=== PATIENT | male | born 1955 | race Caucasian/White ===

== ENCOUNTER 2024-04-26 10:44 | Emergency (ER) | payer MEDICARE, SELFPAY ==
[2024-04-26 11:10] VITALS: BP 181/105
[2024-04-26 11:21] VITALS: BMI 27.4
--- NOTE | 2024-04-26 12:47 | ED.GENMED ---
History of Present Illness
General
Chief Complaint: Anxiety
Time Seen by Provider: 04/26/24 12:29
History of Present Illness
History of Present Illness:
Patient presents to the emergency department with anxiety, sleep deprivation. Notes that he had a panic attack a few months ago and since then he has gradually had worsening anxiety. Reports that he has not slept in 5 days. Reports that he has
been painting his house at night and pacing around his trailer. Endorses passive suicidal thoughts but states that if he wanted to kill himself he would not be here right now. Denies any alcohol use. Endorses marijuana use. Denies any other
illicit drug use. Denies medical history
Past History
Past History
ED Past Medical History: None
ED Past Surgical History: None
Social History
Tobacco: Non-smoker
Alcohol: Occasional
Personal: Other (Seperated)
Living: alone
Employment: Employed
Family History
Family History: Other (Grandfather with Parkinson's)
Phy Exam
Physical Exam
Physical Exam:
General: Psychomotor agitation, ambulating around the room, cooperative
Head: NCAT
Neck, Normal in appearance, no swelling
Respiratory: No Respiratory distress
Abdomen: No distension
Ext: no edema
Neuro: NEIL, AOx4
Psych: Anxious appearing, denies suicidal ideation
Skin: Normal color
Course
Orders/Labs/Results
Orders:
Orders
04/26/24 10:47
Electrocardiogram (*1) Urgent
Reason for Study: Other
Other Reason for Exam: anxiety
EKG- Treatment ONCE
04/26/24 11:07
1:1 Observation - Suicide/ Violent Behavior As Directed
04/26/24 12:43
Crisis Consult Routine
Reason for Consult: Amelia, passive suicidal ideation
04/26/24 12:47
Alcohol Urgent
Complete Blood Count/With Diff Urgent
Comprehensive Metabolic Panel Urgent
04/26/24 12:49
Fentanyl, Urine Urgent
Urine Drug Abuse Screen Urgent
Date Specimen was Collected: 04/26/24
Time Specimen was Collected: 12:47
04/26/24 13:46
Lorazepam [Ativan] 1 mg .ROUTE .STK-MED ONE
04/26/24 13:47
Lorazepam [Ativan] 1 mg PO NOW STA
Abnormal Lab Results
04/26/24 04/26/24
12:47 12:49
MPV 10.7 H fL
(7.4-10.4)
Abs Immat Gran (auto) 0.1 H 10^3/uL
(0-0.05)
Absolute Neuts (auto) 7.5 H 10^3/uL
(1.4-6.5)
Absolute Monos (auto) 0.7 H 10^3/uL
(0.1-0.6)
Lymphocytes % 15.8 L %
(20.5-51.1)
Glucose 116 H mg/dl
(70-99)
Ur Oxycodone Screen Positive H
(Negative)
U Marijuana (THC) Screen Positive H
(Negative)
04/26/24 12:47
04/26/24 12:47
Vital Signs
Initial and Last Documented VS:
Initial Vital Signs
Temp Pulse Resp BP Pulse Ox
97.3 F 71 22 181/105 97
04/26/24 11:10 04/26/24 11:10 04/26/24 11:10 04/26/24 11:10 04/26/24 11:10
Last Documented Vital Signs
Temp Pulse Resp BP Pulse Ox
97.3 F 71 22 181/105 97
04/26/24 11:10 04/26/24 11:10 04/26/24 11:10 04/26/24 11:10 04/26/24 11:10
*Critical Care Note
Total Time (30-74mins, 75-104mins- exclusive of procedures): Not Applicable
ED Attending Note
ED Attending Note
ED Attending Note:
Patient with likely manic episode and anxiety. Denies any psychiatric history. Will check basic labs and consult crisis
Patient seen by crisis. They felt that he was not an acute threat to himself. He has follow-up with a psychiatrist tomorrow. Return precautions given.
-
Portions of this chart may have been created with voice recognition software.� Occasional wrong word or��sound alike� substitutions may have occurred due to the inherent limitations of voice recognition software.
Discharge Plan
Departure
Patient Disposition: Home (Routine Discharge)
Date of Disposition: 04/26/24
Time of Disposition: 14:56
Patient with high blood pressure during this ER visit?: No
Discharge Problem:
Anxiety
Prescriptions:
No Action
amoxicillin-pot clavulanate 1 TABLET tablet
1 tab PO Q12 Qty: 14 0RF
Referrals:
NONE,* [Family Provider] -
Activity Restrictions/Additional Instructions:
Return to ER with worsening symptoms.
Interventions
Interventions:
*Risk Screen - Suicide Last Done: 04/26/24 11:04
*General Assessment Last Done: 04/26/24 11:21
*Neglect/Abuse Screening Last Done: 04/26/24 11:21
ED- Fall Risk Assessment Last Done: 04/26/24 11:24
*ED COVID-19 Vaccine History Last Done: 04/26/24 11:21
*Nursing Disposition Last Done: 04/26/24 15:19
ED-Psychological Assessment Last Done: 04/26/24 11:21
Discharge Date and Time
Discharge Date/Time: 04/26/24 15:19
Print Language: URDU
[2024-04-26 13:02] LABS: % Basophils 0.8 % (0-2); % Eosinophils 1.3 % (0-6); % Immature Granulocytes 0.5 % (0-0.5); % Lymphocytes 15.8 % (20.5-51.1); % Monocytes 6.9 % (1.7-9.3); % Neutrophils 74.7 % (42.2-75.2); Absolute Basophils 0.1 10^3/uL (0-0.2); Absolute Eosinophils 0.1 10^3/uL (0-0.7); Absolute Immature Granulocytes 0.1 10^3/uL (0-0.05); Absolute Lymphocytes 1.6 10^3/uL (1.2-3.4); Absolute Monocytes 0.7 10^3/uL (0.1-0.6); Absolute Neutrophils 7.5 10^3/uL (1.4-6.5); Hematocrit 45.3 % (39.0-52.0); Hemoglobin 15.6 g/dL (13.0-18.0); Mean Corp Hgb Conc. 34.4 g/dL (33.0-37.0); Mean Corpuscular Hgb 28.2 pg (27.0-31.0); Mean Corpuscular Volume 81.9 fL (80.0-94.0); Mean Platelet Volume 10.7 fL (7.4-10.4); Nucleated Red Blood Cells % 0 % (-); Platelet Count 236 10^3/uL (130-400); Red Blood Cell Count 5.53 10^6/uL (4.70-6.10); Red Cell Dist. Width 13.6 % (11.5-14.5)
[2024-04-26 13:17] LABS: ALT (SGPT) 38 U/L (0-50); AST (SGOT) 30 U/L (17-59); Albumin 4.6 g/dl (3.5-5.0); Alkaline Phosphatase 120 U/L (38-126); Blood Urea Nitrogen 18 mg/dl (9-20); Calcium 9.6 mg/dl (8.4-10.2); Carbon Dioxide 26 mmol/L (22-30); Chloride 101 mmol/L (98-107); Estimated Creatinine Clearance 96 ml/min; Glucose 116 mg/dl (70-99); Potassium 4.3 mmol/L (3.5-5.1); Sodium 138 mmol/L (135-145); Total Bilirubin 0.8 mg/dl (0.2-1.3); Total Protein 6.9 g/dl (6.3-8.2); eGFR > 60.00
[2024-04-26 13:17] LABS: Amphetamines Negative (Negative); Barbiturates Negative (Negative); Benzodiazepines Negative (Negative); Buprenorphine Negative (Negative); Cocaine Negative (Negative); Marijuana Positive (Negative); Methadone Negative (Negative); Methamphetamines Negative (Negative); Opiates Negative (Negative); Phencyclidine Negative (Negative); Tricyclic Antidepressants Negative (Negative)
[2024-04-26 13:20] LABS: Alcohol None Detected
[2024-04-26 13:35] LABS: Fentanyl, Urine Negative (Negative)
[2024-04-26] MEDS: ATIVAN 1 MG PO (13:48)
== END 2024-04-26 15:19 | disposition home or self-care (01) ==
LOC: EMR 10:44
PROVIDERS: EMERGENCY PHYSICIAN Emergency Medicine
DX: F41.9 Anxiety disorder, unspecified (principal); R45.851 Suicidal ideations; Z72.820 Sleep deprivation
CPT/HCPCS: 99283; 80053; 80306; 80307; 82077; 85025; 93005

== ENCOUNTER 2024-05-08 10:27 | Emergency (ER) | payer MEDICARE, SELFPAY ==
[2024-05-08 10:36] VITALS: BP 170/108
--- NOTE | 2024-05-08 10:44 | ED.GENMED ---
History of Present Illness
General
Chief Complaint: Crisis Evaluation
Time Seen by Provider: 05/08/24 10:44
History of Present Illness
History of Present Illness:
TIME OF INITIAL ENCOUNTER: 10:45 AM
HPI:
Patient has been having thoughts of suicide since this past Tuesday (5 days ago). His a year ago but does not think that is a contributing factor as he indicates that they were not very close. He also anxious. He was on BuSpar about
20 years ago for 1 year which helped at the time. He intermittently has been using opiates and Kratom. He says he saw Dr./Psychologist in [place] after he was seen here for crisis and feels that the visit in [place] was useless.
EXAM:
GENERAL: Well appearing in no distress
HEENT: Moist oral mucosa
CARDIOVASCULAR: No murmurs, normal heart rate, regular rhythm, No chest wall tenderness
PULMONARY: No respiratory distress, breath sounds are clear and equal
ABDOMEN: Soft with no peritoneal signs, no tenderness
NEUROLOGIC: Excellent strength all extremities, no coordination deficits
PSYCHIATRIC: Appropriate mental status, normal insight and judgement, however the patient appears to have some pressured speech and appears somewhat anxious at time
EXTREMITIES: Nontender, no edema, moves all extremities equally
SKIN: No rash, no lesions
NUMBER AND COMPLEXITY OF PROBLEMS ADDRESSED AT THE ENCOUNTER
� Chronic conditions affecting care: High blood pressure, anxiety, substance abuse
� Acute Exacerbation and/or Progression of Chronic Illness: This is an acute but recurring problem
� Differential Diagnosis includes: Suicidal ideation, depression, anxiety
AMOUNT AND/OR COMPLEXITY OF DATA TO BE REVIEWED AND ANALYZED
� I performed an independent evaluation of and my interpretation is:
EKG:
CT:
X-rays:
Laboratory Studies: I reviewed basic blood work from the recent past
Other:
� Review of other/old records: The patient had blood work done nearly 2 weeks ago and had a normal CBC and chemistries
� Clinical information was obtained by an independent historian: None needed
� Prescriptions/Medications Considered but not given: Considered BuSpar
� Further testing considered but not performed:
RISK OF COMPLICATIONS AND/OR MORBIDITY OR MORTALITY OF PATIENT MANAGEMENT
� Social determinants of health affecting care: Says he lives in a trailer home, has no children
� Discussion with other providers: Informed crisis of the consult at 10:55 AM; he was here with a crisis evaluation 11 days ago
� Escalation of care including admission/observation vs risk of discharge considered: This is the patient's second visit to the emergency department and has not been doing well as an outpatient.
ANY OTHER UPDATES:
12:05 PM: The patient is being bed search by crisis
12:20 PM: Anxiety is rather significant�will give a dose of Ativan
1:10 PM: I spoke to crisis who indicates the [facility] but cannot arrive there until after 6 PM today.
Past History
Past History
ED Past Medical History: None
ED Past Surgical History: None
Social History
Tobacco: Non-smoker
Alcohol: Occasional
Personal: Other (Seperated)
Living: alone
Employment: Employed
Family History
Family History: Other (Grandfather with Parkinson's)
Phy Exam
Physical Exam
Physical Exam:
See HPI
Course
Orders/Labs/Results
Orders:
Orders
05/08/24 10:33
1:1 Observation - Suicide/ Violent Behavior As Directed
05/08/24 10:34
Crisis Consult Urgent
Reason for Consult: si/anxiety
05/08/24 12:08
Lorazepam [Ativan] 1 mg PO NOW STA
05/08/24 16:33
Complete Blood Count/With Diff Urgent
Comprehensive Metabolic Panel Urgent
Urinalysis Reflex To Culture Urgent
Date Specimen was Collected: 05/08/24
Time Specimen was Collected: 16:32
05/08/24 18:00
Nicotine [Nicoderm Transdermal] 21 mg TRANSDERM DAILY
Abnormal Lab Results
05/08/24
16:33
MPV 11.1 H fL
(7.4-10.4)
Absolute Monos (auto) 1.0 H 10^3/uL
(0.1-0.6)
Monocytes % 10.8 H %
(1.7-9.3)
BUN 21 H mg/dl
(9-20)
05/08/24 16:33
05/08/24 16:33
Vital Signs
Initial and Last Documented VS:
Initial Vital Signs
Temp Pulse Resp BP Pulse Ox
97.8 F 75 18 170/108 96
05/08/24 10:36 05/08/24 10:36 05/08/24 10:36 05/08/24 10:36 05/08/24 10:36
Last Documented Vital Signs
Temp Pulse Resp BP Pulse Ox
97.8 F 77 18 162/88 97
05/08/24 10:36 05/08/24 18:00 05/08/24 18:00 05/08/24 18:00 05/08/24 18:00
*Critical Care Note
Total Time (30-74mins, 75-104mins- exclusive of procedures): Not Applicable
ED Attending Note
-
Portions of this chart may have been created with voice recognition software.� Occasional wrong word or��sound alike� substitutions may have occurred due to the inherent limitations of voice recognition software.
Discharge Plan
Departure
Patient Disposition: Psych Facility
Date of Disposition: 05/08/24
Time of Disposition: 12:04
Patient with high blood pressure during this ER visit?: Yes
Discharge Problem:
Suicidal ideation
Prescriptions:
No Action
amoxicillin-pot clavulanate 1 TABLET tablet
1 tab PO Q12 Qty: 14 0RF
Referrals:
UNKNOWN,NO INTERVIEW [Family Provider] -
Interventions
Interventions:
*Risk Screen - Suicide Last Done: 05/08/24 10:31
*Neglect/Abuse Screening Last Done: 05/08/24 11:30
ED- Fall Risk Assessment Last Done: 05/08/24 18:45
*ED COVID-19 Vaccine History Last Done: 05/08/24 10:36
*Nursing Disposition Last Done: 05/08/24 18:45
ED-Psychological Assessment Last Done: 05/08/24 12:27
Discharge Date and Time
Discharge Date/Time: 05/08/24 19:50
Print Language: TURKMEN
[2024-05-08] MEDS: ATIVAN 1 MG PO (12:11)
[2024-05-08 13:00] VITALS: BP 149/80
[2024-05-08 16:48] LABS: % Basophils 0.8 % (0-2); % Eosinophils 2.4 % (0-6); % Immature Granulocytes 0.3 % (0-0.5); % Lymphocytes 27.8 % (20.5-51.1); % Monocytes 10.8 % (1.7-9.3); % Neutrophils 57.9 % (42.2-75.2); Absolute Basophils 0.1 10^3/uL (0-0.2); Absolute Eosinophils 0.2 10^3/uL (0-0.7); Absolute Lymphocytes 2.6 10^3/uL (1.2-3.4); Absolute Neutrophils 5.4 10^3/uL (1.4-6.5); Hematocrit 46.7 % (39.0-52.0); Hemoglobin 16.1 g/dL (13.0-18.0); Mean Corp Hgb Conc. 34.5 g/dL (33.0-37.0); Mean Corpuscular Hgb 28.4 pg (27.0-31.0); Mean Corpuscular Volume 82.4 fL (80.0-94.0); Mean Platelet Volume 11.1 fL (7.4-10.4); Nucleated Red Blood Cells % 0 % (-); Platelet Count 234 10^3/uL (130-400); Red Blood Cell Count 5.67 10^6/uL (4.70-6.10); Red Cell Dist. Width 13.3 % (11.5-14.5); White Blood Cell Count 9.3 10^3/uL (4.8-10.8)
[2024-05-08 16:49] LABS: Urine Albumin Negative (Neg - Trace); Urine Bilirubin Negative (Negative); Urine Character Clear (Clear); Urine Color Yellow; Urine Glucose Negative (Negative); Urine Ketone Negative (Negative); Urine Leukocyte Negative (Negative); Urine Nitrite Negative (Negative); Urine Occult Blood Negative (Negative); Urine Urobilinogen Negative (Neg - 1+)
[2024-05-08 17:00] LABS: ALT (SGPT) 19 U/L (0-50); AST (SGOT) 23 U/L (17-59); Albumin 4.1 g/dl (3.5-5.0); Alkaline Phosphatase 81 U/L (38-126); Blood Urea Nitrogen 21 mg/dl (9-20); Calcium 9.4 mg/dl (8.4-10.2); Carbon Dioxide 29 mmol/L (22-30); Chloride 102 mmol/L (98-107); Glucose 79 mg/dl (70-99); Potassium 3.9 mmol/L (3.5-5.1); Sodium 141 mmol/L (135-145); Total Bilirubin 0.6 mg/dl (0.2-1.3); Total Protein 6.6 g/dl (6.3-8.2); eGFR > 60.00
[2024-05-08] MEDS: NICODERM TRANSDERMAL 21 MG TRANSDERM (17:28)
[2024-05-08 18:00] VITALS: BP 162/88
== END 2024-05-08 19:50 ==
LOC: EMR 10:27
PROVIDERS: Emergency Medicine; EMERGENCY PHYSICIAN Emergency Medicine
DX: R45.851 Suicidal ideations (principal)
CPT/HCPCS: 99283; 80053; 81003; 85025

== ENCOUNTER 2024-06-04 09:21 | Emergency (ER) | payer MEDICARE, SELFPAY ==
[2024-06-04 09:28] VITALS: BP 179/118
[2024-06-04 10:20] VITALS: BP 204/104
[2024-06-04 10:22] VITALS: BP 204/104
--- NOTE | 2024-06-04 10:22 | ED.GENMED ---
History of Present Illness
<Whitney Das MD, Resident - Last Filed: 06/04/24 13:03>
General
Chief Complaint: Abdominal Symptoms
Source: patient
Time Seen by Provider: 06/04/24 10:19
History of Present Illness
History of Present Illness:
This is a 68-year-old male patient with PMH of anxiety presents to the ED with a myriad of concerns. He states that he has been experiencing a left-sided throbbing headache, a burning sensation in his chest, constipation and blurry vision since the
past 5 days. He denies any fever, chills or abdominal pain. He denies any cough or sore throat. He states that he is a very anxious person and has been worrying about his symptoms.
Past History
<Whitney Das MD, Resident - Last Filed: 06/04/24 13:03>
Past History
ED Past Medical History: Psychiatric (Anxiety)
ED Past Surgical History: None
Social History
Tobacco: Non-smoker
Alcohol: Occasional
Personal: Other (Seperated)
Living: alone
Employment: Employed
Family History
Family History: Other (Grandfather with Parkinson's)
Review of Systems
<Whitney Das MD, Resident - Last Filed: 06/04/24 13:03>
Review of Systems
Constitutional: Denies fever or chills
Respiratory: Denies cough or trouble breathing
Cardiac: Reports chest pain
ABD/GI: Reports constipated; Denies abdominal pain
Neurological: Reports headache (Left-sided)
Psychiatric: Reports anxiety
Phy Exam
<Whitney Das MD, Resident - Last Filed: 06/04/24 13:03>
General Physical Exam
General Presentation: well appearing and no apparent distress
Cardiovascular Exam
Cardiovascular Exam: regular rate/rhythm and no murmur
Heart Sounds: normal
Pulmonary Exam
Pulmonary Exam: lungs clear, no respiratory distress and no crackles
Gastrointestinal Exam
Gastrointestinal Exam: non tender, soft and non distended
Neurological Exam
Neurological Exam: oriented x3
Musculoskeletal Exam
Musculoskeletal Exam: no edema
Skin Exam
Skin Exam: warm/dry
Psychiatric Exam
Psychiatric Exam: normal mood/affect
Course
<Whitney Das MD, Resident - Last Filed: 06/04/24 13:03>
Vital Signs
Initial and Last Documented VS:
Initial Vital Signs
Temp Pulse Resp Pulse Ox
36.7 C 78 16 98
06/04/24 09:26 06/04/24 09:26 06/04/24 09:26 06/04/24 09:26
Last Documented Vital Signs
Temp Pulse Resp BP Pulse Ox
36.7 C 88 16 178/108 97
06/04/24 09:26 06/04/24 10:22 06/04/24 10:22 06/04/24 12:00 06/04/24 12:45
<Scott Castro DO - Last Filed: 06/04/24 13:07>
Vital Signs
Initial and Last Documented VS:
Initial Vital Signs
Temp Pulse Resp Pulse Ox
36.7 C 78 16 98
06/04/24 09:26 06/04/24 09:26 06/04/24 09:26 06/04/24 09:26
Last Documented Vital Signs
Temp Pulse Resp BP Pulse Ox
36.7 C 88 16 178/108 97
06/04/24 09:26 06/04/24 10:22 06/04/24 10:22 06/04/24 12:00 06/04/24 12:45
<Whitney Das MD, Resident - Last Filed: 06/04/24 13:03>
*Critical Care Note
Total Time (30-74mins, 75-104mins- exclusive of procedures): Not Applicable
<Whitney Das MD, Resident - Last Filed: 06/04/24 13:03>
Update Note
Update Note:
Patient seems to be a poor historian with changing history/complaints. He stated to attending physician that he seems to be 'withdrawing from Kratom'. [facility] consulted and recommended pt start on Suboxone. Pt will be discharged with medication of
follow up with outpt rehab.
ED Attending Note
<Whitney Das MD, Resident - Last Filed: 06/04/24 13:03>
-
Portions of this chart may have been created with voice recognition software.� Occasional wrong word or��sound alike� substitutions may have occurred due to the inherent limitations of voice recognition software.
<Scott Castro, - Last Filed: 06/04/24 13:07>
ED Attending Note
Patient seen and examined by attending physician: Yes
I performed a history and physical exam of patient and discussed management with resident, I reviewed resident's note and agree with documented findings and plan of care.: Yes
ED Attending Note:
I evaluated the patient at bedside. As I walk in the room the patient tells me that he 'wants help in rehab due to withdrawal from kratom'. He tells me that his symptoms primarily are insomnia and constipation. Will contact [facility].
At 11 AM, I spoke to Baldo with [facility].
I spoke to [facility]�can follow-up with all the on 12 2. [facility] recommends that we tried Suboxone. Will give low-dose with once a day dosing that may help with symptoms.
Discharge Plan
Departure
Patient Disposition: Home (Routine Discharge)
Date of Disposition: 06/04/24
Time of Disposition: 13:02
Patient with high blood pressure during this ER visit?: Yes
Discharge Problem:
Opioid use disorder
Prescriptions:
New
buprenorphine-naloxone [Suboxone] 4-1 mg film
1 film buccal Q24H Qty: 14 0RF
No Action
amoxicillin-pot clavulanate 1 TABLET tablet
1 tab PO Q12 Qty: 14 0RF
Referrals:
Delmar Burrell DO [Family Provider] -
Activity Restrictions/Additional Instructions:
I spoke to [facility] who recommends that we place you on Suboxone and they recommend that you follow-up at [facility]. I did send a prescription for Suboxone to your pharmacy that may help with your symptoms.
Interventions
Interventions:
*Risk Screen - Suicide Last Done: 06/04/24 10:26
*General Assessment Last Done: 06/04/24 10:23
*Neglect/Abuse Screening Last Done: 06/04/24 09:26
ED- Fall Risk Assessment Last Done: 06/04/24 11:04
*ED COVID-19 Vaccine History Last Done: 06/04/24 10:23
LT-Cvujzm-Jtymkvvwpk Assessment Last Done: 06/04/24 10:23
Discharge Date and Time
Print Language: EMIRATI
[2024-06-04 12:00] VITALS: BP 178/108
== END 2024-06-04 13:31 | disposition home or self-care (01) ==
LOC: EMR 09:21
PROVIDERS: EMERGENCY PHYSICIAN Emergency Medicine; FAMILY PHYSICIAN Family Medicine
DX: F11.10 Opioid abuse, uncomplicated (principal)
CPT/HCPCS: 99283

== ENCOUNTER 2024-06-13 16:15 | Observation (INO) | payer MEDICARE, SELFPAY ==
[2024-06-13 09:05] VITALS: BP 152/100
[2024-06-13] MEDS: SUBUTEX 4 MG SL (11:31)
[2024-06-13 11:54] LABS: % Basophils 0.9 % (0-2); % Eosinophils 0.5 % (0-6); % Immature Granulocytes 0.3 % (0-0.5); % Lymphocytes 15.6 % (20.5-51.1); % Monocytes 6.7 % (1.7-9.3); Absolute Basophils 0.1 10^3/uL (0-0.2); Absolute Lymphocytes 1.2 10^3/uL (1.2-3.4); Absolute Monocytes 0.5 10^3/uL (0.1-0.6); Hematocrit 46.4 % (39.0-52.0); Hemoglobin 15.9 g/dL (13.0-18.0); Mean Corp Hgb Conc. 34.3 g/dL (33.0-37.0); Mean Corpuscular Hgb 29.2 pg (27.0-31.0); Mean Corpuscular Volume 85.1 fL (80.0-94.0); Mean Platelet Volume 10.6 fL (7.4-10.4); Nucleated Red Blood Cells % 0 % (-); Platelet Count 221 10^3/uL (130-400); Red Blood Cell Count 5.45 10^6/uL (4.70-6.10); Red Cell Dist. Width 13.3 % (11.5-14.5); White Blood Cell Count 7.9 10^3/uL (4.8-10.8)
[2024-06-13 12:17] LABS: Troponin I < 0.012 ng/ml
[2024-06-13 12:21] LABS: ALT (SGPT) 25 U/L (0-50); AST (SGOT) 28 U/L (17-59); Albumin 4.1 g/dl (3.5-5.0); Alkaline Phosphatase 74 U/L (38-126); Blood Urea Nitrogen 21 mg/dl (9-20); Calcium 9.2 mg/dl (8.4-10.2); Carbon Dioxide 25 mmol/L (22-30); Chloride 104 mmol/L (98-107); Glucose 162 mg/dl (70-99); Potassium 4.1 mmol/L (3.5-5.1); Sodium 139 mmol/L (135-145); Total Bilirubin 0.5 mg/dl (0.2-1.3); Total Protein 6.5 g/dl (6.3-8.2); eGFR > 60.00
[2024-06-13 13:05] LABS: Urine Albumin Negative (Neg - Trace); Urine Bilirubin Negative (Negative); Urine Character Clear (Clear); Urine Color Yellow; Urine Glucose Negative (Negative); Urine Ketone Negative (Negative); Urine Leukocyte Negative (Negative); Urine Nitrite Negative (Negative); Urine Occult Blood Negative (Negative); Urine Specific Gravity 1.015 (<1.030); Urine Urobilinogen Negative (Neg - 1+)
[2024-06-13] MEDS: XANAX 1 MG PO (13:18)
[2024-06-13 13:23] LABS: Alcohol None Detected
[2024-06-13 13:42] LABS: Amphetamines Negative (Negative); Barbiturates Negative (Negative); Benzodiazepines Negative (Negative); Buprenorphine Positive (Negative); Cocaine Negative (Negative); Marijuana Positive (Negative); Methadone Negative (Negative); Methamphetamines Negative (Negative); Opiates Negative (Negative); Phencyclidine Negative (Negative); Tricyclic Antidepressants Negative (Negative)
[2024-06-13 14:07] LABS: Fentanyl, Urine Negative (Negative)
--- NOTE | 2024-06-13 14:56 | ED.GENMED ---
History of Present Illness
General
Chief Complaint: Withdrawal Symptoms
Source: patient
Exam Limitations: none
Time Seen by Provider: 06/13/24 10:54
Nursing documentation reviewed up to this point in time: agreed with
History of Present Illness
History of Present Illness:
68-year-old male past medical history of polysubstance abuse alcohol abuse hypertension presenting to the emergency department today with multiple concerns. Main concerns are difficulty with balance and walking. He claims that his gait is altered
and he is staggering as well as blurred vision diffusely but no focal deficit. Denies any specific numbness or weakness denies any chest pain does have some nausea some lightheadedness some generalized fatigue. Has been off and on with Suboxone
recently stopped taking Percocet last week stop drinking last week also stopped taking kratom last week.
Past History
Past History
ED Past Medical History: Psychiatric (Anxiety)
ED Past Surgical History: None
Social History
Tobacco: Non-smoker
Alcohol: Occasional
Personal: Other (Seperated)
Living: alone
Employment: Employed
Family History
Family History: Other (Grandfather with Parkinson's)
Review of Systems
Review of Systems
Allergies reviewed?: Yes
All Other Systems: ROS reviewed and negative except as documented in HPI and ROS
Phy Exam
Physical Exam
Physical Exam:
GENERAL: Alert , in no apparent distress
EYE: pupils equal and reactive
NECK: Supple, no significant adenopathy.
ENT: o/p clr, mmm.
CARDIAC: Regular rate and rhythm .
LUNGS: Clear breath sounds bilaterally, no acute respiratory distress, no wheezes/rales/rhonchi
ABDOMEN: Soft, without focal tenderness, no r/g, no cvat
NEUROLOGICAL: Alert and oriented, when ambulating somewhat staggering gait seems to be somewhat off balance but not falling. Has 5 out of 5 upper and lower extremity strength and able to perform finger-nose and mokw-ve-btbp well.
SKIN: Warm and dry, skin intact.
MUSCULOSKELETAL: No edema, well perfused.
PSYCH: Normal and appropriate interaction.
Course
Orders/Labs/Results
Orders:
Orders
06/13/24 11:10
EKG [Electrocardiogram (*1)] Urgent
Reason for Study: Vertigo / Dizzy
CT Head W/o Iv Contrast Urgent
Comment:
Reason For Exam: off balance
Chest [CR Chest - 2 Views ] Urgent
Comment:
Reason For Exam: weakness/cough
06/13/24 11:11
EKG- Treatment ONCE
Buprenorphine [Subutex] 8 mg SL ONCE ONE
06/13/24 11:20
Buprenorphine [Subutex] 4 mg SL NOW ONE
06/13/24 11:40
Alcohol Urgent
CBC/With Diff [Complete Blood Count/With Diff] Urgent
CMP [Comprehensive Metabolic Panel] Urgent
Troponin I Urgent
06/13/24 12:39
Fentanyl, Urine Urgent
Urinalysis Reflex To Culture Urgent
Date Specimen was Collected: 06/13/24
Time Specimen was Collected: 12:36
Urine Drug Abuse Screen Urgent
Date Specimen was Collected: 06/13/24
Time Specimen was Collected: 12:36
06/13/24 12:57
Add On- LAB Urgent
Tests Added?: UDS
Add On- LAB Urgent
Tests Added?: alcohol level
06/13/24 13:01
Alprazolam [Xanax] 1 mg PO NOW STA
06/13/24 13:07
Add On- LAB Urgent
Tests Added?: urine drug abuse screen
06/13/24 14:44
NEUROLOGY CONSULT Urgent
Consulting Provider: Black García
Was physician already notified: Yes
Reason for consult: balance issues, blurred vision
Abnormal Lab Results
06/13/24 06/13/24
11:40 12:39
MPV 10.6 H fL
(7.4-10.4)
Neutrophils % 76.0 H %
(42.2-75.2)
Lymphocytes % 15.6 L %
(20.5-51.1)
BUN 21 H mg/dl
(9-20)
Glucose 162 H mg/dl
(70-99)
Ur Buprenorphine Positive H
(Negative)
U Marijuana (THC) Screen Positive H
(Negative)
06/13/24 11:40
06/13/24 11:40
Vital Signs
Initial and Last Documented VS:
Initial Vital Signs
Temp Pulse Resp BP Pulse Ox
97.5 F 87 22 152/100 99
06/13/24 09:05 06/13/24 09:05 06/13/24 09:05 06/13/24 09:05 06/13/24 09:05
Last Documented Vital Signs
Temp Pulse Resp BP Pulse Ox
97.5 F 87 20 152/100 99
06/13/24 09:05 06/13/24 09:05 06/13/24 11:47 06/13/24 09:05 06/13/24 09:05
MDM/Problems Addressed
MDM/Problems Addressed:
68-year-old male presenting to the emergency department today with concerns mainly of staggering gait blurred vision over the past few days. Does have a long history of alcohol abuse as well as polysubstance abuse recently stopping opioids and
kratom. Has been taking the Suboxone off and on over the past few days. On arrival vital signs are normal patient in no obvious distress when ambulating patient seems to be off balance and is somewhat staggering. Claims his vision is blurred but
nothing objective on my examination no visual field deficits labs unremarkable. Head CT without acute findings Case discussed with neurology who recommends further assessment patient will be admitted.
*Critical Care Note
Total Time (30-74mins, 75-104mins- exclusive of procedures): Not Applicable
ED Attending Note
-
Portions of this chart may have been created with voice recognition software.� Occasional wrong word or��sound alike� substitutions may have occurred due to the inherent limitations of voice recognition software.
Discharge Plan
Departure
Patient Disposition: Admit
Date of Disposition: 06/13/24
Time of Disposition: 15:01
Admit to: Telemetry
Admit to doctor: Brad
Presentation/result/management discussed w/ accepting MD/DO: Hospitalist
Patient with high blood pressure during this ER visit?: No
Condition: Good
Covid-19: Not Applicable
Discharge Problem:
Staggering gait, Blurred vision, bilateral
Prescriptions:
No Action
amoxicillin-pot clavulanate 1 TABLET tablet
1 tab PO Q12 Qty: 14 0RF
buprenorphine-naloxone [Suboxone] 4-1 mg film
1 film buccal Q24H Qty: 14 0RF
Referrals:
NONE,* [Family Provider] -
Interventions
Interventions:
*Risk Screen - Suicide Last Done: 06/13/24 08:55
*General Assessment Last Done: 06/13/24 08:55
*Neglect/Abuse Screening Last Done: 06/13/24 08:55
*ED COVID-19 Vaccine History Last Done: 06/13/24 11:48
ED- Neurological Assessment Last Done: 06/13/24 11:47
ED-Psychological Assessment Last Done: 06/13/24 11:47
Discharge Date and Time
Print Language: SCOTTISH
--- NOTE | 2024-06-13 15:10 | CON.NEURO4 ---
Addendum entered and electronically signed by Black García MD 06/13/24 15:48:
Studies reviewed.
I have personally examined the patient. I reviewed and agree with the METAL MACHINIST's Note.
My addenda:
Awake, alert, interactive. No acute distress.
Speech intact.
Follows 2-step requests w/o difficulty. No tremor.
Extra-ocular movements grossly intact.
Facial movements full and symmetric. Hearing intact to normal conversational volume.
Normal UE movements bilaterally.
Neck: full ROM.
Chest: no dyspnea
Heart: no JVD
Ext: (-) Clubbing, (-) Cyanosis, (-) Edema
IMPRESSIONS/RECOMMENDATIONS:
Abrupt onset of gait ataxia visual change and chronic daily headache
Differential diagnosis includes toxic metabolic encephalopathy which is most likely, as well as structural abnormality which may include cerebellar injury
Check blood work for metabolic abnormalities
Check MRI of brain for completeness without contrast
Physical therapy evaluations
Consider aspirin initiation
Initiate medications for headache remediation
Consider thiamine replacement
D/W patient
Will continue to follow peripherally.
Original Note:
Consultation - Neurology 4
-
CONSULTING PHYSICIAN:Dr. Black García
REFERRING PHYSICIAN: JAVIER Rosario
DICTATED BY: EVERTON Marie
DATE/TIME OF REQUEST: 06/13/2024
DATE/TIME OF CONSULTATION: 06/13/2024
Reason for Consultation: difficulty with gait and vision changes
History of Present Illness:
This is a 68 year old right handed male patient with a past medical history of hypertension, anxiety and polysubstance abuse who presented to the ER for difficulty with balance and vision changes over the past 4 days. He reports he noted vision
changes about 4 days ago. He went to his manager commercial sales. They noted that he needed a new prescription for glasses. Unfortunately he had to wait at least 10 days for the lenses. He reports since then he has had worsening vision. He describes it
as blurry vision, unable to see straight with intermittent flashes of light and floaters. He also feels that his gait has been off. He says he just feels unbalanced and unsteady. This am when he got up to walk across the living room he fell and
had difficulty getting up, prompting him to call 911. He does feel vision changes are contributing to lack of balance. He also reports a bilateral temporal severe headache describes as throbbing/burning sensation. He reports it is 10 out of 10 in
intensity.. He reports he has been least losing sleep d/t pain. He denies any nausea or vomiting. He denies any sensitivity to lights or sounds.
He had presented to the ER on 06/04/2024 with significant anxiety and headache. He previously had been maintained on Suboxone for opioid abuse. He stopped this 3 moths ago and started Kratom drinks. He felt he became addicted to these so he
stopped and felt he was having withdrawal from Kratom and went to the ER for Evaluation. He was then started on Suboxone regime.
Unfortunately because of his vision changes he was unable to drive to pickup driver his Suboxone and has been without for about 4 days.
Currently he continues to have vision and balance issues. He does not feel his gait is steady. He denies any weakness or numbness. He does fell he is cognitively not clear and continues with severe headache. He does admit to significant anxiety
and feels this is exacerbating symptoms. He believes symptoms may just be related to medication withdrawal.
Past Medical History: anxiety, hypertension, polysubstance abuse
Surgical History: none
Family History: father-Parkinson's
Social History: Currently admits to occasional ETOH use, non-smoker. history of polysubstance abuse. Currently back on Suboxone. Lives alone, 1.5 years ago. 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
Allergies: see below
Home Medications: see below
Review of Symptoms:
Patient denies any fever, chest pain, shortness of breath, GI or symptoms. Admits to headache and difficulty with vision and balance.
�
Vital Signs: see below
Physical Exam:
The patient is afebrile, in no acute distress no SOB.
Neurologic Examination:
The patient is awake, alert and oriented x 3. He is able to follow commands and answer questions appropriately. There is no aphasia or dysarthria. On cranial nerve assessment, pupils are 2 mm bilateral, round and reactive to light and
accommodation. Visual tan are full. Extraocular movements are intact. Facial sensations are intact and bilaterally symmetrical, there is no facial asymmetry. Hearing is intact bilaterally to normal conversation volume. Tongue palate and uvula are
midline. Sternocleidomastoid strengths are full bilaterally. Motor strengths are 5/5 bilateral upper and lower extremities on medical research [place] scale. There is no drift or involuntary movement noted. Deep tendon reflexes are 1+ bilateral
upper and lower extremities and Babinski is absent bilaterally. Sensations of light touch and temperature are intact and bilaterally symmetrical. There was no extinction noted on double simultaneous stimulation. Coordination is intact by finger to
nose bilaterally. B/L heel to baca reduced. (+) Romberg.
Lab Results: see below
Neuro Imaging: CT head 06/13/2024 (no acute intracranial abnormality
Impression:
MATILDE VALADEZ is a 68 year old M who has presented to the hospital with vision changes, headache and balance difficulty
Differentials for presentation include Opioid/substance withdrawal, migraine with aura vs less likely stroke
Recommendations:
-Reviewed CT head with no acute intracranial abnormality
-Obtain MRI brain -will provide lorazepam prior to study for claustrophobia
-will order ASA and rest of stroke work up if (+)stroke noted on MRI brain
-Will order additional labs for metabolic causes
-Continued Suboxone
-Will order Ketorolac, Prochlorperazine and Diphenhydramine in attempt to break migraine
-PT evaluation
-Continue to monitor neurologic status
-DVT prophylaxis
-Rest of medical management per primary care team
Discussed patient care with patient and neurologist, Dr. García
Medication and Allergies
Home Medications
Home Medications
�Medication �Instructions �Recorded
buprenorphine 8 mg-naloxone 2 mg 0.5 film buccal DAILY 06/13/24
sublingual film
trazodone 100 mg tablet 100 mg PO HS 06/13/24
Allergies
Allergies
Allergy/AdvReac Type Severity Reaction Status Date / Time
No Known Allergies Allergy Verified 06/04/24 09:28
Vital Signs / Labs
-
Vital Signs and Labs:
Temp Pulse Resp BP Pulse Ox
97.5 F 76 20 133/81 97
06/13/24 09:05 06/13/24 15:20 06/13/24 11:47 06/13/24 15:20 06/13/24 15:20
06/13/24 11:40
06/13/24 11:40
06/13/24 06/13/24
11:40 12:39
MPV 10.6 H
Neutrophils % 76.0 H
Lymphocytes % 15.6 L
BUN 21 H
Glucose 162 H
Ur Buprenorphine Positive H
U Marijuana (THC) Screen Positive H
[2024-06-13 15:20] VITALS: BP 133/81
[2024-06-13] MEDS: TORADOL 10 MG PO (15:38)
[2024-06-13] MEDS: BENADRYL 25 MG PO (15:39)
[2024-06-13] MEDS: COMPAZINE 10 MG PO (15:39)
[2024-06-13 15:48] LABS: Erythrocyte Sed Rate 4 mm/hour (0-20)
--- NOTE | 2024-06-13 15:53 | W.PN.UPDATE ---
Update Note
Progress Note Update
I saw and examined the patient.
The ACCOUNTING ADMINISTRATOR or PA's note was reviewed and I agree with the note.
Comment: 68 y/o M, hx of HTN, Anxiety, polysubstance abuse, presents to ER with balance issues/vision changes for 4 days. Was evaluated by opthalmologist who prescribed new glasses. Has not yet obtained them, and in interim reports worsening vision
- blurry vision, with floaters. Also reports gait is off - feeling unbalanced, unstead. Reports 1 fall prompting 911 call. Also reports headache - severe, throbbing sensation, 10/10. He is active smoking and also on Suboxone, also using Kratom. He
is currently without Suboxone supply.
in ER. UDS + also for Marijuana which patient denies any use in the past 2 months.
In ER he was seen by Neurology, a migraine cocktail was ordered.
Physical Exam
General: Comfortable and Conversant
HEENT: Anicteric, Moist mucous membranes and PERRLA
Respiratory: Clear and Non Labored Respirations
Cardiac: S1/S2 and Regular Rhythm
GI: Soft and Non Tender
Rectal: Deferred by Provider
Musculoskeletal: No Clubbing, No Cyanosis and No Edema
Skin: Warm and Dry
Neuro: Awake, Alert, Oriented, No Motor Deficits and Other (Noted slow gait with lose of balance when trying to walk at a faster pass; Positive Romberg)
Assessment:
Vision changes
Unsteady gait
- suspect related to polysubstance abuse
- check MRI
- check metabolic workup
- Neuro consulted
- PT/OT
Hx of polysubstance abuse (Kratom, MJ, Opiates, Tobacco)
Anxiety
- continue Suboxone
- add Nicotine patch
- psych evaluation; continue Trazodone
Reported hx of HTN
- not on any BP meds
- monitor
DVT ppx: SCDs
Code: Full
--- NOTE | 2024-06-13 15:59 | HPS.HSE ---
Addendum entered and electronically signed by Kristyn Diaz MD 06/13/24 16:20:
see update note for addendum
Original Note:
Family Physician
-
Family Physician: * NONE
Chief Complaint
-
Difficulty with Gait and Blurry Vision
History of Present Illness
Patient is a 68 y/o male past medical history of anxiety and polysubstance abuse who presents with difficulty with balance and vision changes. He reports he feels unbalanced and unsteady when he walks. He notes blurry vision has worsened over the
last week, and feels like his vision is affecting his balance. He reports significant increase in his anxiety which has led him to increasing his cigarette consumption from 0.5 pack to 1.5 packs per day. He reports he has been unable to pear picker
his Suboxone, and has been without for about 4 days. He reports associated bitemporal headache. He denies focal numbness, tingling or weakness.
]
Medical History
Past Medical History
Past Medical History: Reports Other
Additional Past Medical History:
Anxiety
Polysubstance Abuse
Past Surgical History: Reports None and Other
Additional Past Surgical History:
Left Leg Surgery
Darfur Teeth
Tonsillectomy
Social History
Tobacco: Smoker (1.5 packs per day)
Alcohol: None
Drug: Other (Opioid addiction now on Suboxone. Patient reports prior Marijuana use, but not for past several months. Previously using Kratom drinks )
Family History
Family History: Not pertinent
Allergies / Home Medications
Allergies reflects when Allergies were last updated in [facility].
Home Medications with original date entered in [facility]
Allergy/Medication List:
Allergies
Allergy/AdvReac Type Severity Reaction Status Date / Time
No Known Allergies Allergy Verified 06/04/24 09:28
Home Medications
buprenorphine 8 mg-naloxone 2 mg sublingual film 0.5 film buccal DAILY 12/04/24
trazodone 100 mg tablet 100 mg PO HS 06/13/24
Review of Systems
-
A 12 point ROS was completed and negative except as noted: Yes
Constitutional: Denies Fever or Chills
Respiratory: Denies Cough or Trouble Breathing
Cardiac: Denies Chest Pain or Palpitations
Abdomen/GI: Denies Abdominal Pain, Nausea, Vomiting or Diarrhea
Physical Exam
Vital Signs
Vital Signs
Temp Pulse Resp BP Pulse Ox
97.5 F 76 20 133/81 97
06/13/24 09:05 06/13/24 15:20 06/13/24 11:47 06/13/24 15:20 06/13/24 15:20
Physical Exam
General: Comfortable and Conversant
HEENT: Anicteric, Moist mucous membranes and PERRLA
Respiratory: Clear and Non Labored Respirations
Cardiac: S1/S2 and Regular Rhythm
GI: Soft and Non Tender
Rectal: Deferred by Provider
Musculoskeletal: No Clubbing, No Cyanosis and No Edema
Skin: Warm and Dry
Neuro: Awake, Alert, Oriented, No Motor Deficits and Other (Noted slow gait with lose of balance when trying to walk at a faster pass; Positive Romberg)
Laboratory Results
-
06/13/24 11:40
06/13/24 11:40
Laboratory Results
Total Bilirubin 0.5 mg/dl (0.2-1.3) 06/13/24 11:40
AST 28 U/L (17-59) 06/13/24 11:40
ALT 25 U/L (0-50) 06/13/24 11:40
Alkaline Phosphatase 74 U/L (38-126) 06/13/24 11:40
Troponin I < 0.012 ng/ml 06/13/24 11:40
Data Reviewed
-
CT Scan: Report Reviewed by me
Lab Data: Labs Reviewed by me
Old Records: Reviewed
Impression/Plan
-
Blurry Vision / Difficulty with Balance, suspect related to opioid/substance withdrawal
-Neurology consult by ED
-Check Brain MRI
-Consult PT/OT
Severe / Poorly Controlled Anxiety
-Consult Psych
-Continue Trazodone
Polysubstance Abuse
-Continue Suboxone
-Encourage smoking
DVT proph: SCDs
Code Status: Full Code
[2024-06-13 17:16] LABS: TSH Reflex To Free T4 0.59 uIU/ml (0.47-4.68)
[2024-06-13 17:17] LABS: Ferritin 32.6 ng/ml (17.9-464.0)
[2024-06-13 17:41] VITALS: BMI 26.0
[2024-06-13 17:42] VITALS: BP 148/80
[2024-06-13 17:49] LABS: Folate 14.9 ng/ml (2.76-20); Vitamin B12 314 pg/ml (239-931)
[2024-06-13] MEDS: TYLENOL 650 MG PO (19:40)
[2024-06-13] MEDS: DESYREL 100 MG PO (21:24)
[2024-06-13] MEDS: ATIVAN 1 MG PO (22:19)
[2024-06-13 23:33] VITALS: BP 132/72
[2024-06-14 05:37] VITALS: BMI 25.5
[2024-06-14 08:27] VITALS: BP 120/78
[2024-06-14] MEDS: SUBUTEX 4 MG SL (09:12)
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
[2024-06-14 11:12] VITALS: BP 142/72; PULSE 75; O2SAT 97
[2024-06-14 11:24] VITALS: BP 142/72; PULSE 75; O2SAT 96
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
--- NOTE | 2024-06-14 15:37 | W.PN.HOSP.TC ---
Today's Communication/Plan
-
dc in AM to senior living with assistance of his validation scientist to friends home if no space at senior living
Assessment / Plan
Assessment / Plan
Assessment:
Vision changes
Unsteady gait
- suspect related to polysubstance abuse; cessation strongly advised
- MRI and metabolic workup negative
- Neuro following, no further recs
- PT/OT - VN recommended
Hx of polysubstance abuse (Kratom, MJ, Opiates, Tobacco)
Anxiety
- continue Suboxone
- continue Nicotine patch
- psych evaluation; continue Trazodone
Reported hx of HTN
- not on any BP meds
- monitor
DVT ppx: SCDs
Code: Full
Anticipated Discharge: Within 24 hours
Subjective/Interval History
-
Date of Service: June 14, 2024
denies any new complaints presently
Objective Data
-
Vital Signs:
Vital Signs
Temp Pulse Resp BP Pulse Ox
98.3 F 77 18 120/78 95
06/14/24 08:27 06/14/24 08:27 06/14/24 08:27 06/14/24 08:27 06/14/24 08:27
I&O
06/13/24 06/14/24 06/15/24
06:59 06:59 06:59
Intake Total 240 / 240
Balance 240 / 240
Physical Exam
-
General: No Apparent Distress
HEENT: Normocephalic and Atraumatic
Respiratory: Negative Wheezes
Cardiac: Regular Rhythm and S1/S2
GI: Soft
Genito-urinary: No Costovertebral Tender
Neuro: AO x 3
Hematologic / Lymphatic: No Lymphadenopathy
Psych: Calm
Data Reviewed
-
Total Time Spent with Patient (in minutes): 42
Labs: Labs Reviewed by me
[2024-06-14 15:57] VITALS: BP 134/76
[2024-06-14] MEDS: TYLENOL 650 MG PO (19:40)
--- NOTE | 2024-06-14 20:00 | PTCARENOTE ---
Patient refusing H/H lab draw
[2024-06-14] MEDS: DESYREL 100 MG PO (21:12)
[2024-06-14 23:46] VITALS: BP 155/94
[2024-06-15 07:35] VITALS: BP 156/91
[2024-06-15] MEDS: SUBUTEX 4 MG SL (08:30)
--- NOTE | 2024-06-15 09:12 | CM ---
Addendum entered by Biju Naidu 06/15/24 14:33:
Spoke hip[facility]/ [facility] unable to accept after reviewing pt's clinicals. Pt does not meet criteria for LOC needed
Additional referrals sent to [facility] and [facility]. Per Andrew, [facility] can accept pt pending [facility] funding. Andrew will complete pre-cert for funding w/ pt at bedside. CM to await updates
Hospitalist updated
Addendum entered by Biju Naidu 06/15/24 11:46:
Spoke w/Andrew, [facility] is unable to accept due to pt's current presentation. Pt needs a level 4 LOC which is both medical and substance abuse treatment. Andrew referred to [facility], per Andrew, [facility] not have any beds currently but
if they accept him he can admit once a bed becomes available. Will await on determination from [facility]
Met w/ pt and Andrew. Per pt, he is cont to be agreeable to rehab. Pt states he is agreeable to d/c today and can go home or stay w/ his friend if he is accepted at [facility] and wait for a bed. Per Andrew, the rehab can transport pt from home to
facility.
Hospitalist updated
Original Note:
Spoke marie [facility]ales/BELL regarding d/c plan. Per Andrew, pt's bi consultant is unable to pick him up today to go to the alf. Pt is now opting to go to D&A rehab. Andrew sent referral and clinicals to [facility], pending determination. Per Andrew, if pt is
not accepted at [facility], additional referral will be sent to [facility]. [facility] funding will be obtained if accepted for rehab to fund admission.
Per Andrew, pt would like to go home prior to going to rehab to get some clothes. Pt will be provided w/ transportation home if he has no means to do this. Andrew stated from home, the rehab will pick pt up and transport to rehab. CM will await
updates from Andrew regarding rehab referrals.
Hospitalist updated, per Dr. Diaz, d/c order will be cancelled for right now.
Plan: IP D&A rehab, pending determination
--- NOTE | 2024-06-15 09:19 | W.PN.HOSP.TC ---
Today's Communication/Plan
-
medically stable for discharge to drug and alcohol rehab pending placement
Assessment / Plan
Assessment / Plan
Assessment:
Vision changes
Unsteady gait
- suspect related to polysubstance abuse; cessation strongly advised
- MRI and metabolic workup negative
- Neuro following, no further recs
- PT/OT - VN recommended
Hx of polysubstance abuse (Kratom, MJ, Opiates, Tobacco)
Anxiety
- continue Suboxone
- continue Nicotine patch
- psych evaluation; continue Trazodone
- patient interested in drug and alcohol rehab, CM assisting.
Reported hx of HTN
- not on any BP meds
- monitor
DVT ppx: SCDs
Code: Full
Anticipated Discharge: 24 - 48 hours
Subjective/Interval History
-
Date of Service: June 15, 2024
no complaints
Objective Data
-
Vital Signs:
Vital Signs
Temp Pulse Resp BP Pulse Ox
98.1 F 68 18 156/91 100
06/15/24 07:35 06/15/24 07:35 06/15/24 07:35 06/15/24 07:35 06/15/24 07:35
I&O
06/14/24 06/15/24 06/16/24
06:59 06:59 06:59
Intake Total 240 / 240 1200 / 1200
Output Total 300 / 300
Balance 240 / 240 900 / 900
Physical Exam
-
General: No Apparent Distress
HEENT: Normocephalic and Atraumatic
Respiratory: Negative Wheezes
Cardiac: Regular Rhythm and S1/S2
GI: Soft
Genito-urinary: No Costovertebral Tender
Musculoskeletal: No Edema
Neuro: AO x 3
Hematologic / Lymphatic: No Lymphadenopathy
Psych: Calm
Data Reviewed
-
Total Time Spent with Patient (in minutes): 41
Labs: Labs Reviewed by me
--- NOTE | 2024-06-15 14:04 | W.DS.TRANS ---
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
-
Discharge Instructions:
Discharge Diagnosis/Procedures polysubstance abuse and blurry vision from
polysubstance abuse
Diet Regular
Activity As tolerated
Bathing Restrictions None
Instructions:
Stand-Alone Forms:
Changes to Home Medications: No
Discharge Medications:
DC Medications w/original date entered in myContactCard
buprenorphine 8 mg-naloxone 2 mg sublingual film 0.5 film buccal DAILY 06/13/24
trazodone 100 mg tablet 100 mg PO HS 06/13/24
Home Medication Changes
Pending Results: No
Total time spent discharging patient (in min): 41
--- NOTE | 2024-06-15 14:21 | W.PN.UPDATE ---
Update Note
Progress Note Update
patient seen chart reviewed mr flowers remains very upset about the housing situation. he was set for dc to stay w a friend and go to a penitentiary but at this point it is felt that rehab would be more beneficial for him. sonny from [facility] is working
with him to get this set up. he has tentatively been accepted at [facility] pending [facility] funding. he remains very anxious that this can be accomplished and fears he will be forced to go back to his trailer and 'freeze to ' will order ativan
one mg for anxiety and agitation. have explained to him that this is a stop gap measure and not to continue indefinitely but for this moment will order up to bid . hopefully he will be dc later today.
[2024-06-15 15:39] VITALS: BP 157/85
--- NOTE | 2024-06-15 15:44 | PTCARENOTE ---
pt being discharged, instructions provided. arrangements being made by pt and Andrew from [facility]. Andrew is walking pt down to facilitate transport. pt aaox3 with steady gait and vitals.
== END 2024-06-15 16:13 | disposition home or self-care (01) ==
LOC: 4 EAST ACU 16:15
PROVIDERS: Physician Assistant; ADMITTING PHYSICIAN Internal Medicine; CONSULT PHYSICIAN Psychiatry & Neurology Neurology; CONSULT PHYSICIAN Psychiatry & Neurology Psychiatry; EMERGENCY PHYSICIAN Student in an Organized Health Care Education/Training Program
DX: F19.10 Other psychoactive substance abuse, uncomplicated (principal); H53.8 Other visual disturbances; F41.9 Anxiety disorder, unspecified; I10 Essential (primary) hypertension; R26.0 Ataxic gait; R42 Dizziness and giddiness; R53.1 Weakness; F11.20 Opioid dependence, uncomplicated; F10.10 Alcohol abuse, uncomplicated; F17.210 Nicotine dependence, cigarettes, uncomplicated; R51.9 Headache, unspecified; W01.0XXA Fall on same level from slipping, tripping and stumbling without subsequent striking against object, initial encounter; Y93.01 Activity, walking, marching and hiking; Y92.009 Unspecified place in unspecified non-institutional (private) residence as the place of occurrence of the external cause; Z60.2 Problems related to living alone; Z59.02 Unsheltered homelessness
CPT/HCPCS: 70450; 70551; 71046; 80053; 80306; 80307; 81003; 82077; 82607; 82728; 82746; 84443; 84484; 85025; 85652; 93005; 97116; 97162; 97166; 99285; 99406; G0378

== ENCOUNTER 2024-07-13 13:07 | Emergency (ER) | payer MEDICARE, SELFPAY ==
[2024-07-13 13:11] VITALS: BP 132/106
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
--- NOTE | 2024-07-13 15:09 | CM ---
CM spoke with crisis. Crisis advised that patient has been part of the [facility]. THey are looking to see if he can return. CM will remain available.
[2024-07-13] MEDS: ATIVAN 1 MG PO (15:36)
[2024-07-13 16:09] VITALS: BP 150/86
== END 2024-07-13 16:30 | disposition home or self-care (01) ==
LOC: EMR 13:07
PROVIDERS: EMERGENCY PHYSICIAN Emergency Medicine
DX: F41.9 Anxiety disorder, unspecified (principal); Z59.00 Homelessness unspecified; R45.851 Suicidal ideations; I10 Essential (primary) hypertension; F19.10 Other psychoactive substance abuse, uncomplicated
CPT/HCPCS: 99283

== ENCOUNTER 2024-07-15 07:43 | Emergency (ER) | payer MEDICARE, SELFPAY ==
[2024-07-15 07:44] VITALS: BMI 23.1
[2024-07-15 07:45] VITALS: BP 126/92
[2024-07-15] MEDS: SAPHRIS 10 MG SL (08:08)
[2024-07-15 08:32] LABS: Amphetamines Negative (Negative); Barbiturates Negative (Negative); Benzodiazepines Positive (Negative); Buprenorphine Positive (Negative); Cocaine Negative (Negative); Marijuana Positive (Negative); Methadone Negative (Negative); Methamphetamines Negative (Negative); Opiates Negative (Negative); Phencyclidine Negative (Negative); Tricyclic Antidepressants Negative (Negative)
--- NOTE | 2024-07-15 08:50 | ED.GENMED ---
History of Present Illness
General
Chief Complaint: Suicidal Ideation
Source: patient and police
Time Seen by Provider: 07/15/24 07:49
History of Present Illness
History of Present Illness:
68-year-old male who presents states that he feels like he is 'dying'. He states he is extremely anxious and feels like he only has so many days to live because he is homeless. He has felt suicidal but does not currently feel suicidal. He states
that they recently took his belongings when he was in a rehab and he lost his checkbook and his account is now close to 0 and he has no money. He denies any medical complaints. He specifically denies chest pain or shortness of breath.
Past History
Past History
ED Past Medical History: HTN and Psychiatric (Anxiety, substance abuse)
ED Past Surgical History: None
Social History
Tobacco: Non-smoker
Alcohol: Occasional
Personal: Other (Seperated)
Living: alone
Employment: Employed
Family History
Family History: Other (Grandfather with Parkinson's)
Phy Exam
Physical Exam
Physical Exam:
CONSTITUTIONAL Vital signs reviewed, Patient alert and oriented to person, place and time. Well-appearing
HEAD atraumatic, normocephalic.
EYES eyelids normal to inspection, Extraocular muscles intact, Conjunctiva normal, Sclera normal.
NECK normal range of motion, Trachea midline, no jugular venous distention.
RESP no respiratory distress
BACK No obvious deformities
UPPER EXTREMITY Gross Range of motion normal, gross motor strength normal
LOWER EXTREMITY Gross range of motion normal, Gross motor strength normal
NEURO Speech normal, No focal motor deficits include, [place] coma scale 15, Memory normal, Cranial Nerves intact to screening exam.
SKIN Skin warm, dry, and normal in color.
PSYCHIATRIC Patient oriented to person place and time, anxious
Course
Orders/Labs/Results
Orders:
Orders
07/15/24 07:59
1:1 Observation - Suicide/ Violent Behavior As Directed
07/15/24 08:03
Fentanyl, Urine Urgent
Urine Drug Abuse Screen Urgent
Date Specimen was Collected: 07/15/24
Time Specimen was Collected: 08:02
07/15/24 08:06
Asenapine Sublingual [Saphris] 10 mg SL NOW STA
07/15/24 08:50
Lorazepam [Ativan] 2 mg PO NOW STA
07/15/24 11:42
Alcohol Urgent
Complete Blood Count/With Diff Urgent
Comprehensive Metabolic Panel Urgent
Abnormal Lab Results
07/15/24 07/15/24
08:03 11:42
MPV 11.2 H fL
(7.4-10.4)
Carbon Dioxide 32 H mmol/L
(22-30)
Glucose 111 H mg/dl
(70-99)
Total Protein 6.2 L g/dl
(6.3-8.2)
Ur Buprenorphine Positive H
(Negative)
U Benzodiazepines Scrn Positive H
(Negative)
U Marijuana (THC) Screen Positive H
(Negative)
07/15/24 11:42
07/15/24 11:42
Vital Signs
Initial and Last Documented VS:
Initial Vital Signs
Pulse Resp BP Pulse Ox
102 22 126/92 96
07/15/24 07:45 07/15/24 07:45 07/15/24 07:45 07/15/24 07:45
Last Documented Vital Signs
Pulse Resp BP Pulse Ox
102 22 126/92 96
07/15/24 07:45 07/15/24 07:45 07/15/24 07:45 07/15/24 07:45
MDM/Problems Addressed
MDM/Problems Addressed:
Anxiety, suicidal thoughts
*Pulse Oximetry
Patient hypoxic: no
*Critical Care Note
Total Time (30-74mins, 75-104mins- exclusive of procedures): Not Applicable
Data Reviewed
Source: patient and police
Patient Management
Escalation/DeEscalation of care consider admission/obs:
Case discussed with crisis. Patient seen by crisis. Patient is voluntary. Remained stable. Labs grossly unremarkable. Placement obtained and awaits ride
ED Attending Note
-
Portions of this chart may have been created with voice recognition software.� Occasional wrong word or��sound alike� substitutions may have occurred due to the inherent limitations of voice recognition software.
Discharge Plan
Departure
Patient Disposition: Psych Facility
Date of Disposition: 07/15/24
Time of Disposition: 08:51
Discharge Problem:
Suicidal ideation, Anxiety
Prescriptions:
No Action
trazodone 100 mg Tablet
100 mg PO HS
buprenorphine-naloxone 8-2 mg Film
0.5 film BUCCAL DAILY
Patient Comments:
06/13/24: last filled 06/05/24 for 7 films over 14 days per PDMP.
Referrals:
UNKNOWN - PT NOT,INTERVIEWE [Family Provider] -
Interventions
Interventions:
*Risk Screen - Suicide Last Done: 07/15/24 07:57
*General Assessment Last Done: 07/15/24 07:57
*Neglect/Abuse Screening Last Done: 07/15/24 07:57
ED- Fall Risk Assessment Last Done: 07/15/24 07:59
*ED COVID-19 Vaccine History Last Done: 07/15/24 07:57
ED-Psychological Assessment Last Done: 07/15/24 08:00
Discharge Date and Time
Print Language: DIVEHI
[2024-07-15] MEDS: ATIVAN 2 MG PO (08:57)
[2024-07-15 09:15] LABS: Fentanyl, Urine Negative (Negative)
[2024-07-15 12:02] LABS: % Eosinophils 0.7 % (0-6); % Immature Granulocytes 0.3 % (0-0.5); % Lymphocytes 27.1 % (20.5-51.1); % Monocytes 8.8 % (1.7-9.3); % Neutrophils 62.1 % (42.2-75.2); Absolute Basophils 0.1 10^3/uL (0-0.2); Absolute Eosinophils 0.1 10^3/uL (0-0.7); Absolute Lymphocytes 1.8 10^3/uL (1.2-3.4); Absolute Monocytes 0.6 10^3/uL (0.1-0.6); Absolute Neutrophils 4.1 10^3/uL (1.4-6.5); Hematocrit 45.5 % (39.0-52.0); Hemoglobin 15.5 g/dL (13.0-18.0); Mean Corp Hgb Conc. 34.1 g/dL (33.0-37.0); Mean Corpuscular Hgb 28.7 pg (27.0-31.0); Mean Corpuscular Volume 84.3 fL (80.0-94.0); Mean Platelet Volume 11.2 fL (7.4-10.4); Nucleated Red Blood Cells % 0 % (-); Platelet Count 188 10^3/uL (130-400); Red Cell Dist. Width 12.6 % (11.5-14.5); White Blood Cell Count 6.7 10^3/uL (4.8-10.8)
[2024-07-15 12:17] LABS: ALT (SGPT) 19 U/L (0-50); AST (SGOT) 27 U/L (17-59); Albumin 3.9 g/dl (3.5-5.0); Alkaline Phosphatase 81 U/L (38-126); Blood Urea Nitrogen 20 mg/dl (9-20); Carbon Dioxide 32 mmol/L (22-30); Chloride 102 mmol/L (98-107); Estimated Creatinine Clearance 109 ml/min; Glucose 111 mg/dl (70-99); Potassium 3.9 mmol/L (3.5-5.1); Sodium 142 mmol/L (135-145); Total Bilirubin 0.8 mg/dl (0.2-1.3); Total Protein 6.2 g/dl (6.3-8.2); eGFR > 60.00
[2024-07-15 12:18] LABS: Alcohol None Detected
== END 2024-07-15 15:23 ==
LOC: EMR 07:43
PROVIDERS: EMERGENCY PHYSICIAN Emergency Medicine
DX: R45.851 Suicidal ideations (principal); F41.9 Anxiety disorder, unspecified; Z59.00 Homelessness unspecified; Z59.6 Low income
CPT/HCPCS: 99285; 80053; 80306; 80307; 82077; 85025

== ENCOUNTER 2024-08-15 08:26 | Emergency (ER) | payer MEDICARE, SELFPAY ==
[2024-08-15 08:35] VITALS: BP 154/89
[2024-08-15 09:00] VITALS: BP 141/87; BMI 23.1
--- NOTE | 2024-08-15 09:00 | EDRN ---
Dr. Terrell currently at the pts bedside
--- NOTE | 2024-08-15 09:25 | ED.GENMED ---
History of Present Illness
General
Chief Complaint: Crisis Evaluation
Source: patient
Exam Limitations: none
Time Seen by Provider: 08/15/24 08:56
Nursing documentation reviewed up to this point in time: agreed with
History of Present Illness
History of Present Illness:
68-year-old male presents for evaluation from crisis he states he is suicidal recently discharged from [place] apparently was either living in the [facility] or to [facility], he is hungry he is cold states he wants to with the plan,
Past History
Past History
ED Past Medical History: HTN and Psychiatric (Anxiety, substance abuse)
ED Past Surgical History: None
Social History
Tobacco: Non-smoker
Alcohol: Occasional
Drug: None
Personal: Other (Seperated)
Living: alone
Employment: Employed
Family History
Family History: Other (Grandfather with Parkinson's)
Review of Systems
Review of Systems
All Other Systems: Not applicable
Psychiatric: Reports depression, anxiety and suicidal; Denies hallucinations
Phy Exam
Physical Exam
Physical Exam:
Physical Exam
General: no apparent distress, not acutely ill
Neck: Edentulous no jaundice
Lungs: no acute respiratory distress.
Neuro: alert and oriented. no focal neurological deficits
Skin: no rash
Psychiatric: Anxious but cooperative does not appear to be hallucinating states he is suicidal
Extremities: no edema.
Course
Orders/Labs/Results
Orders:
Orders
08/15/24 08:42
1:1 Observation - Suicide/ Violent Behavior As Directed
Crisis Consult Urgent
Reason for Consult: SI
08/15/24 10:11
Complete Blood Count/With Diff Urgent
08/15/24 10:12
Alcohol Urgent
Comprehensive Metabolic Panel Urgent
Vital Signs
Initial and Last Documented VS:
Initial Vital Signs
Temp Pulse Resp BP Pulse Ox
98.7 F 95 18 154/89 98
08/15/24 08:35 08/15/24 08:35 08/15/24 08:35 08/15/24 08:35 08/15/24 08:35
Last Documented Vital Signs
Temp Pulse Resp BP Pulse Ox
98.5 F 82 20 141/87 99
08/15/24 09:00 08/15/24 09:00 08/15/24 09:00 08/15/24 09:00 08/15/24 09:00
MDM/Problems Addressed
Differential Diagnosis Includes:
Depression suicidal homelessness
MDM/Problems Addressed:
Depression
Chronic conditions affecting care:
Homelessness mental health
Chronic conditions affecting care: Psychiatric illness
Acute Exacerbation and/or Progression of Chronic Illness:
Homelessness mental illness
Acute Exacerbation and/or Progression of Chronic Illness: Psychiatric illness
*Pulse Oximetry
Patient hypoxic: no
*Critical Care Note
Total Time (30-74mins, 75-104mins- exclusive of procedures): Not Applicable
Update Note
Update Note:
Update reviewed with client from crisis patient known to the [facility] staff, he will try to place him
ED Attending Note
-
Portions of this chart may have been created with voice recognition software.� Occasional wrong word or��sound alike� substitutions may have occurred due to the inherent limitations of voice recognition software.
Discharge Plan
Departure
Prescriptions:
No Action
trazodone 100 mg Tablet
100 mg PO HS
buprenorphine-naloxone 8-2 mg Film
0.5 film BUCCAL DAILY
Patient Comments:
06/13/24: last filled 06/05/24 for 7 films over 14 days per PDMP.
Referrals:
UNKNOWN,NO INTERVIEW [Family Provider] -
Interventions
Interventions:
*Risk Screen - Suicide Last Done: 08/15/24 08:35
*General Assessment Last Done: 08/15/24 08:35
*Neglect/Abuse Screening Last Done: 08/15/24 09:00
ED- Fall Risk Assessment Last Done: 08/15/24 09:00
*ED COVID-19 Vaccine History Last Done: 08/15/24 09:00
ED-Psychological Assessment Last Done: 08/15/24 09:00
Discharge Date and Time
Print Language: SAUDI ARABIAN
[2024-08-15 11:15] LABS: % Basophils 0.5 % (0-2); % Eosinophils 1.5 % (0-6); % Immature Granulocytes 0.3 % (0-0.5); % Lymphocytes 31.5 % (20.5-51.1); % Monocytes 17.3 % (1.7-9.3); % Neutrophils 48.9 % (42.2-75.2); Absolute Eosinophils 0.1 10^3/uL (0-0.7); Absolute Lymphocytes 1.3 10^3/uL (1.2-3.4); Absolute Monocytes 0.7 10^3/uL (0.1-0.6); Hematocrit 45.1 % (39.0-52.0); Hemoglobin 15.5 g/dL (13.0-18.0); Mean Corp Hgb Conc. 34.4 g/dL (33.0-37.0); Mean Corpuscular Volume 84.5 fL (80.0-94.0); Mean Platelet Volume 10.6 fL (7.4-10.4); Nucleated Red Blood Cells % 0 % (-); Platelet Count 182 10^3/uL (130-400); Red Blood Cell Count 5.34 10^6/uL (4.70-6.10); Red Cell Dist. Width 13.4 % (11.5-14.5)
[2024-08-15 11:26] LABS: ALT (SGPT) 20 U/L (0-50); AST (SGOT) 25 U/L (17-59); Albumin 3.8 g/dl (3.5-5.0); Alkaline Phosphatase 96 U/L (38-126); Blood Urea Nitrogen 15 mg/dl (9-20); Calcium 9.1 mg/dl (8.4-10.2); Carbon Dioxide 29 mmol/L (22-30); Chloride 101 mmol/L (98-107); Estimated Creatinine Clearance 84 ml/min; Glucose 95 mg/dl (70-99); Potassium 3.9 mmol/L (3.5-5.1); Sodium 139 mmol/L (135-145); Total Bilirubin 0.6 mg/dl (0.2-1.3); Total Protein 6.2 g/dl (6.3-8.2); eGFR > 60.00
[2024-08-15 12:00] VITALS: BP 146/71
--- NOTE | 2024-08-15 13:54 | EDRN ---
this RN gave verbal report to [facility] transport
== END 2024-08-15 13:58 ==
LOC: EMR 08:26
PROVIDERS: EMERGENCY PHYSICIAN Emergency Medicine
DX: R45.851 Suicidal ideations (principal); I10 Essential (primary) hypertension; F41.9 Anxiety disorder, unspecified; F19.10 Other psychoactive substance abuse, uncomplicated; Z59.00 Homelessness unspecified
CPT/HCPCS: 99285; 80053; 82077; 85025